=== PATIENT | female | born 1980 | race Caucasian/White ===

== ENCOUNTER 2019-11-01 09:18 | Day surgery (SDC) | payer BC ==
[2019-10-29 14:01] LABS: Urine Appearance CLEAR; Urine Blood NEGATIVE (NEG); Urine Color YELLOW; Urine Glucose NEGATIVE (NEG); Urine Protein NEGATIVE (NEG); Urine Specific Gravity 1.025 (1.005-1.030); Urine Urobilinogen 0.2 mg/dL (0.2-1.0)
[2019-10-29 14:01] LABS: Basophils % 0.5 % (0-1.3); Hematocrit 43.5 % (36.0-45.0); Lymphocytes % 26.8 % (15.3-44.8); MPV 8.9 fL (7.6-11.3); RBC Red Blood Cell Count 4.58 M/uL (3.86-4.86)
[2019-10-29 14:09] LABS: Urine Bilirubin 1+ (NEG); Urine Microscopic Reflex NO UMIC
--- OUTSIDE RECORDS SUMMARY | 2019-11-01 09:35 | XMS REPORT | Continuity of Care Document ---
:1980 Author Organization [facility] t Address [address] [place] [address] Care Team Providers Name Role Phone Cesar FRANKS Attending Clinician Payers Payer Name Policy Type Policy Number Effective Date Expiration Date S ource Problems This patient has no known problems. Allergies, Adverse Reactions, Alerts Allergy Allergy Status Severity Reaction(s) Onset Inactive Treating Comm ents Source Name Type Date Date Clinician No Known DA Active U 2013-02 [facility] Allergie 0-24 [place] s 00:00: d 00 [facility] Medications This patient has no known medications. Procedures This patient has no known procedures. Encounters Start End Encounter Admission Attending Care Care Encounter Source Date/Time Date/Time Type Type Clinicians Facility Department ID 2019-04-29 2019-04-29 Emergency Cesar [facility] [id number] 02:40:49 06:02:00 [place] [place] [id number] [place] [id number] [place] [id number] Results This patient has no known results.
[2019-11-01 09:39] LABS: Specific Gravity 1.025 (1.005-1.030)
[2019-11-01] MEDS ORDERED: Ringers Lactate 1,000 ML IV ONE (09:50)
[2019-11-01] MEDS ORDERED: SCOPOLAMINE HYDROBROMIDE PATCH TD ONE (09:50)
[2019-11-01] MEDS ORDERED: BUPIVACAINE 0.25% PF 30 ML VIAL ONE (10:33)
[2019-11-01] MEDS: CEFAZOLIN/SWI 1gm 2 GM/20 ML SYR ONE ×2 (10:39→11:21)
[2019-11-01] MEDS ORDERED: MIDAZOLAM HCL 2 MG/2 ML INJ ONE (10:39)
[2019-11-01] MEDS ORDERED: propofoL 200 MG/20 ML VIAL IV ONE (10:39)
[2019-11-01] MEDS ORDERED: dexAMETHasone 10 MG/ML VIAL ONE (10:39)
[2019-11-01] MEDS ORDERED: LIDOCAINE 2% MPF 5 ML VIAL ONE (10:40)
[2019-11-01] MEDS ORDERED: FENTANYL CITR 250 MCG/5 ML ONE (10:40)
[2019-11-01] MEDS ORDERED: ONDANSETRON 4 MG/2 ML VIAL ONE (10:40)
[2019-11-01] MEDS ORDERED: KETOROLAC 30 MG/ML INJ ONE (10:40)
[2019-11-01] MEDS ORDERED: ROCURONIUM 50 MG/5 ML VIAL IV ONE (10:40)
[2019-11-01] MEDS ORDERED: VECURONIUM 10 MG/VIAL IV ONE (11:53)
[2019-11-01] MEDS ORDERED: NS 0.9% VIAL 10 ML ONE (11:53)
[2019-11-01] MEDS ORDERED: MEPERIDINE HCL 25 MG/ML SYR ONE (13:19)
[2019-11-01] MEDS ORDERED: GLYCOPYRROLATE 0.2 MG/ML SYR ONE (13:46)
[2019-11-01] MEDS ORDERED: NEOSTIGMINE 1 MG/ML -5 ML ONE (14:00)
[2019-11-01 14:05] VITALS: O2SAT 100
[2019-11-01 14:56] VITALS: TEMP 97
[2019-11-01] MEDS ORDERED: HYDROCODONE/APAP 5/325 MG TAB ONE (14:58)
[2019-11-01 16:04] VITALS: BP 139/84
--- NOTE | 2019-11-02 00:48 | OP ---
Date of Procedure: 11/01/2019 Surgeon: Susie Rivera MD Garbage Truck Dispatcher: Radha Montalvo. Preoperative Diagnoses: History of menorrhagia, chronic long-term history of Depo use, and significa nt family history of metastatic ovarian cancer. Postoperative Diagnoses: History of menorrhagia, chronic long-term history of Depo, and significant family history of metastatic ovarian cancer. Procedures Performed: Total laparoscopic hysterectomy, bilateral salpingo-oophorectomy, pelvic washi ng, lysis of sigmoid adhesions. Estimated Blood Loss: Minimal. Specimens: Uterus, bilateral tubes, and ovaries. Pelvic washings. Complications: None. Drains: No drains. Condition: Stable. Findings: Appendix normal. Liver and upper abdominal surfaces, omentum closely examined and negativ e. Ovaries bilaterally appeared to be unremarkable. Two tiny smooth tubes on both sides with tiny paratubal cysts, interrupted tubes due to tubal ligation, and some scar at the bladder. Th ere was significant scarring at the area of the left tube from the sigmoid to the tube to the lateral wall. All these adhesions were taken down first to clear and visualize the IP ligament and then the tube and ovary were able to be resected after this. Condition: The patient's condition is stable. Indications: The patient is a 39-year-old with history of menorrhagia, was placed on a depot medroxy progesterone, has stayed on this long-term for many years now. She had history of mother who at 44 with metastatic ovarian cancer, so she had a BRCA test and was negative for the gene mutation. S o, she was being observed with annual exams. However, most recently, her identical twin sister was d iagnosed with metastatic stage IV ovarian cancer, and the patient came in with the concern of the can cer. Since she already has history of the bleeding, she wanted to have a long-term permanent solutio n which I did not have to worry about ovarian or tubal cancer. We discussed the risks and benefits o f the procedure hysterectomy and alternatives of more frequent screening ultrasound CA-125. The aidee ent did not want to do any medical treatment for this. We discussed about the option of an ablation for future treatment of bleeding and then bilateral salpingo-oophorectomy and pelvic washings, which would suffice. She declined as she wanted to proceed with hysterectomy as well. She was consented a nd brought to the OR. Description Of Procedure: After informed consent was verified, she was taken back to OR and placed i n supine fashion on the operating table. 2 g of Ancef were given. General anesthesia was given, bell yg in supine fashion, and placed in a dorsal lithotomy with Jossue stirrups. Abdomen, vulva, vagina, and perineum were prepped and draped in a sterile fashion. Large VCare fixed into place. Uterus re troflexed. Bai placed in the bladder drain and attached for retrograde filling. This area was rita ped. A 1 cm infraumbilical incision was made with a scalpel using the open laparoscopy technique. F ascia was then incised and peritoneum entered sharply, tagged with 0 Vicryl sutures on each side. Th e fascia was tagged down to the Evelina port. Then, a 5 mm left lower quadrant and right ports were p laced and a 10 mm suprapubic port was placed. After close examination as dictated in the findings, t he patient was placed in Trendelenburg. Then, the bowel adhesions were taken down systematically wit h sharp dissection scissors as well as with LigaSure. Once all these were down, I was able to visual ize the left ovary and tube. Appeared to have some scarring in this area, possibly old infection. S o, the peritoneum was dissected medial to the IP ligament. Once the lateral area was opened up to ca rry the dissection, space was created between the ovary and the IP ligament at the lateral. Once the opening was made in the peritoneum, then the IP was taken down in an isolated fashion. The rest of the ovary and tube were dissected medially and left attached to the uterus. Then, all the components of the paratubal material and the tubes were removed and . Round ligament was taken down, broad ligament opened up anteriorly, and bladder flap created posteriorly down to the posterior cuff. Broad ligament was skeletonized, vessels visualized, and cauterized. Then, going on the opposite s dee, the utero-ovarian ligament was left attached. IP ligament was taken down. Tube and ovary were left attached to the uterus. Broad ligament was taken down and broad ligament was opened up both ant eriorly and posteriorly. After the round was taken, the vessels were exposed, the bladder flap was d eveloped. Vessels were taken down on the right and left side with bipolar basket tip and the LigaSur e and then cardinal ligaments were taken down as well, then circumferential colpotomy with a monopola r hook blade. Thorough irrigation and suction were performed and there was excellent hemostasis at t he level of the cuff. After the specimen was retrieved through the vagina, both tubes and ovaries at [facility], it was handed out for permanent pathology. The vaginal cuff was closed in a single layer with the help of 0 Vicryl suture, simple 0 Vicryls at b oth ends and 3 [id number] in the middle. Uterosacrals were still attached to the proximal part of the vaginal wall and these would provide level 1 support. Did not need any support procedure at t his time. Both ureters were well visualized and there were normal jets of urine from them. 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 The ports were re moved, injected with Marcaine at the entry and exit at the fascia and the skin. Then, umbilical fasc ia closure with tagged 3-0 Vicryl sutures tied to each other and simple 0 Vicryl suture at the suprap ubic port site on the fascia. All skin incisions with the help of interrupted 4-0 Vicryls. Bai and packing were removed and cystoscopy was performed with 30-degrees lens, 17-Omani sheath, a nd normal saline. Excellent jets of urine from both ureteric orifices. Trabeculation seen and sligh tly erythematous transitional cell epithelium, but no other masses were noted. Bladder was drained. Vagina was cleaned up. It was intact. A midline and distal rectocele was seen. Slight apical collapse with 0.3 and -6, so this was left al one. We will discuss this with the patient, and if she is symptomatic, we will treat it. Instrument , needle, and sponge counts x3 were correct at the end of the case. EBL was minimal. The patient tolerated the procedure well. One-week followup. MICHEAL/DINORAH Voice ID: [id number] Report ID: [id number]
== END 2019-11-01 15:58 | disposition home or self-care (01) ==
LOC: OR 09:18
PROVIDERS: ATTEND Obstetrics & Gynecology
PROC: 0UT24ZZ Resection of Bilateral Ovaries, Percutaneous Endoscopic Approach (ICD-10-PCS; 2019-11-01)
PROC: 0UT74ZZ Resection of Bilateral Fallopian Tubes, Percutaneous Endoscopic Approach (ICD-10-PCS; 2019-11-01)
PROC: 0UT94ZZ Resection of Uterus, Percutaneous Endoscopic Approach (ICD-10-PCS; principal; 2019-11-01 11:45)
DX: N92.0 Excessive and frequent menstruation with regular cycle (principal); N83.02 Follicular cyst of left ovary; K66.0 Peritoneal adhesions (postprocedural) (postinfection); Z80.41 Family history of malignant neoplasm of ovary; Z79.3 Long term (current) use of hormonal contraceptives; Z98.84 Bariatric surgery status; Z20.828 Contact with and (suspected) exposure to other viral communicable diseases
CPT/HCPCS: 85025; 36415; 86900; 88108; 86850; 81025; 86901; 88305; 88307; 81003; 58571; U0002; J2704; J2250; J3010; J1100; J2175; J2710; J0690; J7120; J2405